=== PATIENT | female | born 1970 ===

== ENCOUNTER 2018-05-05 00:08 | Emergency (ER) | payer MEDICARE ==
[2018-05-05 01:12] LABS: Basophils # (Auto) 0.1 K/mm3 (0.0-0.1); Basophils % (Auto) 0.8 % (0.0-1.8); Hematocrit 39.2 % (30.3-42.9); Hemoglobin 13.1 gm/dl (10.1-14.3); Lymphocytes # (Auto) 1.2 K/mm3 (1.2-5.4); Lymphocytes % (Auto) 16.7 % (13.4-35.0); Mean Corpuscular HGB Conc 33 % (30-34); Mean Corpuscular Hemoglobin 30 pg (28-32); Mean Corpuscular Volume 90 fl (79-97); Monocytes # (Auto) 0.1 K/mm3 (0.0-0.8); Monocytes % (Auto) 1.3 % (0.0-7.3); Platelet Count 258 K/mm3 (140-440); Red Blood Count 4.36 M/mm3 (3.65-5.03); Red Cell Distribution Width 13.9 % (13.2-15.2)
[2018-05-05 01:34] LABS: BUN/Creatinine Ratio 24; Blood Urea Nitrogen 12 mg/dL (7-17); Calcium 9.7 mg/dL (8.4-10.2); Hemolysis Index 10
[2018-05-05] MEDS ORDERED: NACL 0.9% 1000 ML 1,000 ML IV ONE (02:42)
[2018-05-05] MEDS: NITROSTAT SL PRN ×3 (03:45→04:00)
--- NOTE | 2018-05-05 04:08 | XRay Report ---
FINAL REPORT EXAM: XR CHEST ROUTINE 2V HISTORY: chest pain TECHNIQUE: PA and lateral chest radiographs PRIORS: None. FINDINGS: No mediastinal shift. Cardiac silhouette is not enlarged. No pneumothorax, effusion, or focal pulmonary opacity. No acute skeletal finding. IMPRESSION: No focal pulmonary opacity.
--- NOTE | 2018-05-05 05:48 | Emergency Department Report ---
ED General Adult HPI - General Chief complaint: Chest Pain Stated complaint: CP Time Seen by Provider: 05/05/18 02:42 Source: patient Mode of arrival: Ambulatory Limitations: No Limitations - History of Present Illness Initial comments: Left sided chest pain with radiation down her arm for 2 days. Symptoms are constant, pleuritic, positional, and exertional. Feels like the time that she had pericarditis. Dad had a PA at the age of 60. No SOB. - Related Data Allergies Allergy/AdvReac Type Severity Reaction Status Date / Time No Known Allergies Allergy Verified 05/05/18 00:36 ED Review of Systems ROS: Stated complaint: CP Other details as noted in HPI Comment: All other systems reviewed and negative Cardiovascular: chest pain Gastrointestinal: abdominal pain Genitourinary: frequency ED Past Medical Hx - Past Medical History Hx Asthma: Yes - Surgical History Past Surgical History?: No Additional Surgical History: x3, right arm - Social History Smoking Status: Never Smoker Substance Use Type: None ED Physical Exam - General Limitations: No Limitations General appearance: alert, in no apparent distress - Head Head exam: Present: atraumatic, normocephalic - Eye Eye exam: Present: normal appearance - ENT ENT exam: Present: mucous membranes moist - Neck Neck exam: Present: normal inspection - Respiratory Respiratory exam: Present: normal lung sounds bilaterally. Absent: respiratory distress - Cardiovascular Cardiovascular Exam: Present: regular rate, normal rhythm. Absent: systolic murmur, diastolic murmur, rubs, gallop - GI/Abdominal GI/Abdominal exam: Present: soft, tenderness (suprapubic, LUQ), normal bowel sounds. Absent: guarding, rebound, rigid - Extremities Exam Extremities exam: Present: normal inspection - Back Exam Back exam: Present: normal inspection. Absent: CVA tenderness (R), CVA tenderness (L) - Neurological Exam Neurological exam: Present: alert, oriented X3 - Psychiatric Psychiatric exam: Present: normal affect, normal mood - Skin Skin exam: Present: warm, dry, intact, normal color. Absent: rash ED Course Vital Signs 05/05/18 05/05/18 00:08 00:36 Temperature 98.2 F 98.2 F Pulse Rate 78 79 Respiratory 16 16 Rate Blood Pressure 144/87 144/87 O2 Sat by Pulse 99 99 Oximetry ED Medical Decision Making - Lab Data Result diagrams: 05/05/18 00:48 05/05/18 00:48 - EKG Data -: EKG Interpreted by Me EKG shows normal: sinus rhythm, axis, intervals, QRS complexes Rate: normal - Radiology Data Radiology results: report reviewed, image reviewed - Medical Decision Making 48-year-old female with past medical history of asthma presents to the ER with chest pain and belly pain. Vital signs are stable. Patient is well-appearing. EKG is nonischemic. Lab work shows a bicarbonate of 21. This is due to dehydration. She was given a liter of IV fluids. Chest x-ray shows no focal process. I have low suspicion for emergent pathology in this patient. She is low risk for ACS according to heart score. I'm still waiting for the results of the LFTs, urinalysis, and CT of the abdomen/pelvis. If these are unremarkable, patient can be discharged home on NSAIDs for her chest pain with outpatient follow-up. She states that she does have a family provider. This patient has been signed out to the oncoming ER provider. Patient is worried that she could have pericarditis. There is no evidence of EKG changes consistent with pericarditis today. - Differential Diagnosis pericarditis, arrhythmia, ACS, PE, pneumothorax, UTI, pyelonephritis Critical care attestation.: If time is entered above; I have spent that time in minutes in the direct care of this critically ill patient, excluding procedure time. ED Disposition Clinical Impression: Chest pain, Abdominal pain Disposition: Z-01 MED SCREENING EXAM-CONT Is pt being admited?: No Does the pt Need Aspirin: No Condition: Stable Instructions: Chest Pain (ED) Additional Instructions: Please start taking 500 mg aleve twice a day for the next week to help with your chest pain. Follow up with your family doctor for further evaluation of your chest/abdominal pain.
[2018-05-05 05:50] LABS: Alanine Aminotransferase 22 units/L (7-56); Albumin 4.5 g/dL (3.9-5)
[2018-05-05] MEDS ORDERED: MOTRIN PO ONE (06:09)
[2018-05-05] MEDS ORDERED: TYLENOL PO ONE (06:09)
[2018-05-05 06:14] LABS: Bilirubin,Direct < 0.2 mg/dL (0-0.2)
--- NOTE | 2018-05-05 07:12 | Cat Scan Report ---
FINAL REPORT EXAM: CT ABDOMEN PELVIS W CON HISTORY: left sided abd pain TECHNIQUE: CT images are acquired through the Abdomen and Pelvis in arterial and delayed phases following intravenous administration of contrast. Transaxial, coronal and sagittal reformations are provided. PRIORS: None FINDINGS: Partially visualized intrathoracic contents are unremarkable. Cystic outpouching of the gallbladder fundus measures up to 2 cm on axial series 3, image 66. No pericholecystic inflammatory findings identified. The liver, gallbladder, pancreas, spleen, and adrenal glands are otherwise unremarkable. Kidneys show no worrisome lesions, hydronephrosis, or calculi. There is a 5 centimeter exophytic right lower pole renal cyst. Urinary bladder is unremarkable. Anteverted uterus. No free fluid in the pelvis. Well opacified ureters on delayed excretory phase imaging are without urothelial thickening or filling defect. Small and large bowel are normal in caliber. No acute appendicitis. Scattered sigmoid diverticula without surrounding inflammatory findings. No free air, free fluid, or lymphadenopathy identified. Aorta is normal in course and caliber. Superficial soft tissues are unremarkable. No acute or aggressive appearing skeletal findings. IMPRESSION: No acute findings in the abdomen or pelvis. Cystic outpouching of the gallbladder fundus is most likely secondary to focal adenomyomatosis. Differential diagnosis includes sequela of cholecystitis and malignancy, both of which are thought less likely. Routine follow-up ultrasound is recommended in the absence of focal right upper quadrant symptoms.
[2018-05-05 08:11] VITALS: BP 110/68
== END 2018-05-05 08:14 | disposition home or self-care (01) ==
LOC: ED 00:08
DX: R07.89 Other chest pain (principal); R10.12 Left upper quadrant pain; J45.909 Unspecified asthma, uncomplicated
CPT/HCPCS: 36415; 71046; 74177; 80048; 80074; 84484; 85025; 93005; 93010; 96360; 99285; J7030; Q9967